=== PATIENT | male | born 1950 | race Caucasian/White ===

== ENCOUNTER 2018-11-27 08:46 | Day surgery (SDC) | payer MEDICARE ==
[~2018-11-27] VITALS: Ht 180.3 cm; Wt 100.6 kg
[~2018-11-27 08:46] MED LIST: ALLO100 PO; ASPI81EC PO; EDARBI PO; GLUC500 PO; HYDACE7.5 PO; LISI20 PO; LOSA50 PO; MULTI VIT QD; OMEG1CAP30 PO; OMEP20ER PO; OXYACE5T PO; POTASSIUM99 M1; TRIPLE FLEX PO; Toprol Xl25 MG PO; WARF10 PO; [UNRECOGNIZED DRUG - OTHER]
--- NOTE | 2018-11-27 11:02 | NUR ---
11/27/18 1102 Pippa Godinez PT HAS NICKEL SIZED RED AREA ON HIS RIGHT FOREARM. NO OOZING, NOT OPEN
--- NOTE | 2018-11-27 11:58 | NUR ---
11/27/18 1157 Katerin Day PT. SLEEPY. PT. DENIES ANY PAIN. PT. VERBALIZES ABLE TO FEEL TOUCH TO HIS FINGERS ON HIS RIGHT HAND. DRSG. D&I. PT. DENIES ANY NAUSEA. PT. FOLLOWS COMMANDS BUT THEN FALLS RIGHT BACK TO SLEEP. LUNGS CLEAR ANTERIORLY & LATERALLY.
--- NOTE | 2018-11-27 12:18 | NUR ---
11/27/18 1218 Katerin Day WHEN ASKED PT. IF HE HAD ANY PAIN, HE STATES "NOT BAD" RATING A "5". PT. VERBALIZES PAIN TO RIGHT UPPER HAND. PT. ALSO STATES "IT'S NUMB." WHEN ASKED PT. IF HE WANTED ANY PAIN MED, PT. STATES "NOT RIGHT NOW." PT. WITH APPLE JUICE & CRACKERS AT HIS SIDE. PT. WITH RIGHT HAND ELEVATED UP ON PILLOW. AT HIS SIDE. CALL LIGHT WITHIN REACH.
== END 2018-11-27 13:13 | disposition home or self-care (01) ==
LOC: ORSCSDS 08:46
PROVIDERS: Orthopaedic Surgery
PROC: 0LQ70ZZ Repair Right Hand Tendon, Open Approach (ICD-10-PCS; principal; 2018-11-27 10:00)
DX: S66.320A Laceration of extensor muscle, fascia and tendon of right index finger at wrist and hand level, initial encounter (principal); I10 Essential (primary) hypertension; E78.5 Hyperlipidemia, unspecified; Z87.891 Personal history of nicotine dependence; Z79.899 Other long term (current) drug therapy; I48.91 Unspecified atrial fibrillation; Z79.01 Long term (current) use of anticoagulants
CPT/HCPCS: A9270-GY; J0690; J1100; J1885; J2250; J2370; J2405; J2704; J3010; J7120

== ENCOUNTER 2024-10-21 08:16 | Day surgery (SDC) | payer MEDICARE ==
[~2024-10-21] VITALS: Ht 180.3 cm; Wt 112.7 kg
[~2024-10-21 08:16] MED LIST changes: +LOSA25; +Lidocaine HCl 2% 10 ML SDA ONE
[2024-10-21] MEDS ORDERED: CeFAZolin Sodium 2,000 MG VIAL ONE (09:35)
[2024-10-21] MEDS ORDERED: Glycopyrrolate 0.2 MG/ML 5ML VIAL ONE (10:31)
[2024-10-21] MEDS ORDERED: Ondansetron HCl 2 MG / ML 2ML Vial ONE (10:38)
[2024-10-21] MEDS ORDERED: Dexamethasone Sod Phos 10 MG/ML 1ML VIAL ONE (10:38)
[2024-10-21] MEDS ORDERED: FentaNYL Citrate 50 MCG/ML 2 ML Injection ONE (10:42)
[2024-10-21] MEDS ORDERED: ePHEDrine Sulfate 50 MG/ML 1ML Injection ONE (11:31)
--- NOTE | 2024-10-21 11:42 | NUR ---
10/21/24 1142 Marychuy Francis PT TO PACU FROM OR, UNEVENTFUL HANDOFF, MADE AWARE OF BASELINE AFIB AND BRADYCARDIA. 1120 - HOB RAISED TO ENCOURAGE PT TO WAKE-UP, COUGH, DEEP BREATHE. NASAL CANNULA O2 APPLIED 1125 - PT BECAME HYPOTENSIVE, NO LOC, ABLE TO SPEAK WITH NURSE, (+) DIZZYNESS. HOB TRENDELENBERGED. IV REPOSITIONED, RETAPED, IV FLUIDS OPENED. ADDITIONAL NURSES AND ANESTHESIA TO BEDSIDE. PT ABLE TO SPEAK WITH STAFF THROUGHOUT. VERBAL ORDER OBTAINED FOR 5MG EPHEDRINE FOR MAP <60, PER DR. OVALLES. DR. OVALLES TO F/U AFTER NEXT CASE. PT CONTINUES TO BE IN AFIB, OCCASIONAL PVCS.
[2024-10-21 13:10] VITALS: BP 126/86
--- NOTE | 2024-10-21 13:16 | NUR ---
10/21/24 1316 Marychuy Francis NO HYPOTENSIVE EVENTS IN STEPDOWN. PT HAD BRADYCARDIC AFIB, CONSISTENT WITH PRE-OP. DENIES DIZZYNESS. PAIN MANAGEABLE. NO MEDS IN STEPDOWN OR PACU. TO BEDSIDE, EDUCATED ON ACETAMIOPHEN DAILY LIMIT. STRONGLY ENCOURAGED PT TO SEEK CARDIOLOGY CONSULT. PER JENA QUESADA, PER DR. JOSR MAC TO DC PT WITHOUT HER LAYING EYES ON HIM IF MEETING DC CRITERIA.
== END 2024-10-21 13:10 | disposition home or self-care (01) ==
LOC: ORSCSDS 08:16
PROVIDERS: Orthopaedic Surgery
PROC: 0JNK0ZZ Release Left Hand Subcutaneous Tissue and Fascia, Open Approach (ICD-10-PCS; principal; 2024-10-21 10:00)
DX: M72.0 Palmar fascial fibromatosis [Dupuytren] (principal); M79.642 Pain in left hand; I48.91 Unspecified atrial fibrillation; Z79.01 Long term (current) use of anticoagulants; G47.33 Obstructive sleep apnea (adult) (pediatric); K21.9 Gastro-esophageal reflux disease without esophagitis; E66.01 Morbid (severe) obesity due to excess calories; I10 Essential (primary) hypertension; Z68.34 Body mass index [BMI] 34.0-34.9, adult; Z79.899 Other long term (current) drug therapy; Z01.812 Encounter for preprocedural laboratory examination
CPT/HCPCS: 36415; 85610; 85730; J0690; J1100; J2003; J2405; J2704; J3010; J7120